=== PATIENT | male | born 1970 | race Caucasian/White ===

== ENCOUNTER 2019-11-03 22:13 | Emergency (ER) | payer OTHER ==
[~2019-11-03] VITALS: Ht 180.3 cm; Wt 93.2 kg
[2019-11-03] MEDS ORDERED: LORazepam 2 mg/ml vial IV ONE (22:20)
[2019-11-03] MEDS ORDERED: FAMO20TA44 PO (22:20)
[2019-11-03] MEDS ORDERED: famotidine/PF 10 mg/ml inj IV ONE (22:20)
[2019-11-03] MEDS ORDERED: normal saline 1000ML IV soln IVB ONE (22:20)
[2019-11-03] MEDS ORDERED: OMEP20CA15 PO (22:20)
[2019-11-03] MEDS ORDERED: pantoprazole 40 MG vial IV ONE (22:20)
[2019-11-03] MEDS ORDERED: glucagon, human recombinant 1mg kit IV ONE (22:20)
[2019-11-03] MEDS ORDERED: CARV-50 PO (22:29)
[2019-11-03] MEDS ORDERED: ATOR20TA PO (22:29)
[2019-11-03] MEDS ORDERED: TICA90TA PO (22:30)
[2019-11-03] MEDS ORDERED: HYDR-4070 PO (22:30)
[2019-11-03] MEDS ORDERED: ISOS30TA9 PO (22:30)
[2019-11-03] MEDS ORDERED: ASPI-1265 PO (22:31)
[2019-11-03] MEDS ORDERED: ALLO100T PO (22:31)
[2019-11-03] MEDS ORDERED: ondansetron/PF 4mg/2ml inj IV ONE (22:55)
[2019-11-03 23:00] VITALS: BP 149/81
[2019-11-03] MEDS ORDERED: LIDOcaine Viscous 15ml cup ONE (23:01)
[2019-11-03] MEDS ORDERED: fentaNYL/PF 50MCG/1 ML 2ML syringe ONE (23:01)
[2019-11-03] MEDS ORDERED: MIDAZolam 5mg/5ml vial ONE (23:01)
[2019-11-03 23:35] VITALS: BP 129/82
[2019-11-03 23:45] VITALS: BP 120/78
[2019-11-03 23:55] VITALS: BP 104/67
--- NOTE | 2019-11-04 00:22 | NUR ---
Back from GI
[2019-11-04 01:36] VITALS: BP 169/99
== END 2019-11-04 01:39 | disposition home or self-care (01) ==
LOC: ER 22:14
DX: T18.128A Food in esophagus causing other injury, initial encounter (principal); T18.120A Food in esophagus causing compression of trachea, initial encounter; M79.5 Residual foreign body in soft tissue; K20.9 Esophagitis, unspecified; K29.70 Gastritis, unspecified, without bleeding; K29.80 Duodenitis without bleeding; I25.10 Atherosclerotic heart disease of native coronary artery without angina pectoris; I10 Essential (primary) hypertension; I25.2 Old myocardial infarction; Z72.89 Other problems related to lifestyle; Z79.82 Long term (current) use of aspirin; Z79.899 Other long term (current) drug therapy; X58.XXXA Exposure to other specified factors, initial encounter; Y93.89 Activity, other specified; Y92.89 Other specified places as the place of occurrence of the external cause; Y99.8 Other external cause status
CPT/HCPCS: 43239; 43248; 96374; 96375; 99284; C9113; J1610; J2060; J2250; J3010; J3490; J7030; J7040; 99152; A4620